=== PATIENT | female | born 1960 | race Caucasian/White ===

== ENCOUNTER 2023-07-06 07:43 | Day surgery (SDC) | payer OTHER ==
[~2023-07-06] VITALS: Ht 152.4 cm; Wt 81.6 kg
[~2023-07-06 07:43] MED LIST: ATOR40TA75 PO; B-12100010 PO; LEXA1TAB PO; LISI5TAB11 PO; OMEP-173 PO; TRIA37.577 PO; VITA-243 PO
[2023-07-06] MEDS ORDERED: LIDOCAINE 2% 100MG/5ML SDV (FOR ANES.) As Ordered ONE (08:10)
[2023-07-06] MEDS ORDERED: propofoL 200 MG/20 ML VIAL As Ordered ONE ×2 (08:10→09:30)
[2023-07-06 10:12] VITALS: BP 127/62; TEMP 96.3; O2SAT 98
[2052-07-12] MEDS ORDERED: NS 1,000 ML IV ONE (06:00)
== END 2023-07-06 10:15 | disposition home or self-care (01) ==
LOC: M OPP 07:43 → EDUNIT# 08:30 → M OPP 10:15
PROVIDERS: ATTEND Internal Medicine Gastroenterology
DX: R19.5 Other fecal abnormalities (principal); Z80.0 Family history of malignant neoplasm of digestive organs; K63.5 Polyp of colon; K51.40 Inflammatory polyps of colon without complications; K57.30 Diverticulosis of large intestine without perforation or abscess without bleeding; K64.4 Residual hemorrhoidal skin tags; K64.8 Other hemorrhoids; Z87.891 Personal history of nicotine dependence; Z79.02 Long term (current) use of antithrombotics/antiplatelets; Z79.1 Long term (current) use of non-steroidal anti-inflammatories (NSAID); Z79.2 Long term (current) use of antibiotics; Z79.83 Long term (current) use of bisphosphonates; Z79.899 Other long term (current) drug therapy; Z88.5 Allergy status to narcotic agent